=== PATIENT | male | born 1955 | race Caucasian/White ===

== ENCOUNTER 2016-05-09 10:39 | Emergency (ER) | END 2016-05-09 13:29 | disposition home or self-care (01) | DX: S99.921A Unspecified injury of right foot, initial encounter (principal); E11.9 Type 2 diabetes mellitus without complications; W22.8XXA Striking against or struck by other objects, initial encounter; Y92.9 Unspecified place or not applicable; Z79.4 Long term (current) use of insulin; Z79.01 Long term (current) use of anticoagulants; Z87.891 Personal history of nicotine dependence ==

== ENCOUNTER 2016-06-23 12:10 | Inpatient (IN) | payer MEDICARE, BC ==
[~2016-06-23] VITALS: Ht 167.6 cm; Wt 92.0 kg
[~2016-06-23 12:10] MED LIST: AMPH10CA PO; APIX5TAB PO; ATOR10TA65 PO; INSU100C5 SQ; INSU100I14 SC; LAS20 PO; LEVE-5 PO; MELA3TAB17 PO; METO-448 PO
[2016-06-23 14:30] VITALS: BP 139/64; RESP 18
[2016-06-23] MEDS ORDERED: LISI-525 PO (15:14)
[2016-06-23] MEDS ORDERED: TERA5CAP3 PO (15:14)
[2016-06-23] MEDS ORDERED: SENN-29 PO ×2 (15:14)
[2016-06-23 15:18] VITALS: Ht 167.6 cm; Wt 92.0 kg
[2016-06-23] MEDS ORDERED: VANCOMYCIN IV PER PHARMACY XX SCH (16:30)
[2016-06-23] MEDS ORDERED: NACL 0.9% 3 ML SYG IV SCH (16:30)
[2016-06-23] MEDS ORDERED: GLUCOSE GEL 15 GRAM TUBE BUCCAL PRN (17:30)
[2016-06-23] MEDS ORDERED: GLUCOSE GEL 15 GRAM TUBE PO PRN ×2 (17:30)
[2016-06-23] MEDS ORDERED: GLUCAGON 1 MG INJ IM PRN (17:30)
[2016-06-23] MEDS ORDERED: DEXTROSE 50% 50 ML SYRINGE IV PRN ×2 (17:30)
[2016-06-23] MEDS: INSULIN ASPART [NOVOLOG] 3 ML PEN SC SCH ×3 (17:45→21:05)
[2016-06-23 17:54] LABS: ADD SCAN DIFF NO
[2016-06-23 17:57] LABS: BASOPHILS % 0.3 % (0.0-2.0); EOSINOPHILS # 0.1 10^3/ul (0.0-0.5); EOSINOPHILS % 2.1 % (0.0-7.0); HEMATOCRIT 27.7 % (42.0-52.0); HEMOGLOBIN 9.3 g/dl (14.0-18.0); LYMPHOCYTES # 1.4 10^3/ul (0.8-2.9); LYMPHOCYTES % 20.4 % (15.0-51.0); MEAN CORPUSCULAR HEMOGLOBIN 29.3 pg (29.0-33.0); MEAN CORPUSCULAR HGB CONC 33.6 g/dl (32.0-37.0); MEAN CORPUSCULAR VOLUME 87.4 fl (82.0-101.0); MEAN PLATELET VOLUME 10.4 fl (7.4-10.4); MONOCYTE # 0.6 10^3/ul (0.3-0.9); MONOCYTES % 8.9 % (0.0-11.0); NEUTROPHIL # 4.6 10^3/ul (1.6-7.5); NEUTROPHILS % 67.9 % (39.0-77.0); PLATELET COUNT 181 10^3/UL (140-415); RED BLOOD COUNT 3.17 10^6/ul (4.70-6.10); RED CELL DISTRIBUTION WIDTH 13.9 % (11.5-14.5); WHITE BLOOD COUNT 6.8 10^3/ul (4.8-10.8)
[2016-06-23] MEDS: IMIPENEM-CILAST 500MG IV (PMX) 100 ML IVPB SCH (18:00)
[2016-06-23] MEDS: SOD CHLORIDE 0.45% 1,000 ML IV SCH (18:00)
[2016-06-23] MEDS ORDERED: VANCOMYCIN 1.75 GM in NS 500 ML IVPB ONE (18:00)
[2016-06-23 18:07] LABS: ALBUMIN 3.1 g/dl (3.3-4.9)
--- NOTE | 2016-06-23 18:07 | HP ---
DATE OF ADMISSION: 06/23/2016 HISTORY OF PRESENT ILLNESS: This is one of several [facility] admissions for this 60-year-old gentleman admitted with chief complaint of a gangrenous toe. The patient states that earlier during the week noticed this toe getting somewhat inflamed. Elvie pompa he was seen at the [facility] on June 21 and was given a prescription and an MRI was ordere d which showed osteomyelitis and the patient currently is being admitted for intravenous antibiotics and other appropriate measures. In terms of his past medical history, of note, he has had many epi sodes of foot ulcerations due to his diabetes. He has been under constant care of a technical communication teacher as w ell as been seen multiple times by infectious disease. His significant hospitalizations were for la paroscopic cholecystectomy, cataract in his left eye as well as a massive stroke which he suffered m any years ago, and has had vascular procedures on his right and left lower extremities. He has had issues for several years now with these particular issues. MEDICATIONS: In terms of his current regimen for diabetes, he is taking anywhere from 25 to 30 units of Lantus a t bedtime. He is also taking the following medications: 1. Eliquis 5 mg p.o. b.i.d. 2. Atorvastatin 10 mg at bedtime. 3. Lisinopril 20 mg b.i.d. 4. Metoprolol tartrate 25 mg b.i.d. 5. Terazosin 5 mg at bedtime. 6. Dextroamphetamine tablet 10 mg every 24 hours. 7. Keppra 1000 mg o. b.i.d. 8. Lasix 20 mg a day. 9. Stool softener and laxative. 10. Besides his insulin sliding scale, he is also taking Melatonin 3 mg a day. ALLERGIES: HE IS NOT ALLERGIC TO ANY MEDICATIONS. SOCIAL HISTORY: The patient is , has 3 children. He does not smoke or drink alcohol, nor he does drink any coffee and usually has no difficulty sleeping at night. FAMILY HISTORY: Both parents are . Father at age 74 of MA and heart failure. Mother age 68, had breast cancer. Siblings are alive and well. There is family history of diabetes, heart , cancer, hypertension, and stroke. REVIEW OF SYSTEMS: HEENT: Periodic headaches. CARDIORESPIRATORY: Denies any current chest pain or shortness of breath. GASTROINTESTINAL: No melena or hematemesis. GENITOURINARY: No urgency or frequency. MUSCULOSKELETAL: Positive for current right foot gangrene. NEUROPSYCHIATRIC: Unremarkable. GENERAL HEALTH: As above. PHYSICAL EXAMINATION: VITAL SIGNS: The patient's blood pressure was 139/64, pulse was 63 and regular, respirations were 1 8, temperature 98.1 and O2 sat 95% on room air. HEENT: Unremarkable. Eyes: Pupils were equal and reactive to light and accommodation. Fundi were poorly visualized. Tympanic membranes were unremarkable. Nose was negative. Mouth was unremarkab le. Fair oral hygiene was present. NECK: Supple without any rigidity. Trachea was midline. Thyroid was within normal limits. Neck v eins were flat. Carotid pulses were equal. BACK: Unremarkable. CHEST: Symmetrical. BREASTS AND AXILLARY: Did not reveal any masses. HEART: PMI is fifth intercostal space, midclavicular line. Regular sinus rhythm was noted. No sig nificant murmurs, rubs, or gallops being elicited. ABDOMEN: Soft, good bowel sounds were noted. No significant organomegaly, masses, or tenderness. Scar from prior surgery was noted. GENITALIA: Normal male external genitalia. RECTAL AND PROSTATIC: Done within less than 6 months ago revealed the prostate to be enlarged, othe rwise no rectal masses. EXTREMITIES: Did not reveal any clubbing, edema or cyanosis. There was a large ulcer on the right great toe gangrenous in part, with diminished dorsalis pedis and anterior tibial pulse on that side. Slight erythema. SKIN: Moist and warm without any eruptions other than the erythema around the gangrenous area. NEUROLOGIC EXAM: Other than weakness secondary to his old stroke was unremarkable. IMPRESSION: 1. Gangrenous foot ulcer right great toe distal phalanx with erythema and gangrene. 2. Diabetes mellitus type 1 with retinopathy, status post stroke as well as peripheral vascular dis ease. 3. Seizure disorder. 4. Hypertension. 5. Hyperlipidemia. 6. Degenerative joint disease. DISCUSSION: Plan is to admit patient. Intravenous antibiotics be begun with vancomycin and imipene m. His outpatient medications have been continued and we will try and obtain infectious disease con sultation when available. CONDITION ON ADMISSION: Stable. PROGNOSIS: Obviously dependent upon ultimate diagnosis. Dictated By: SHALONDA TYSON/DANILO Conf#: [id number] [facility]#: [id number]
[2016-06-23 18:08] LABS: POTASSIUM 4.1 mmol/L (3.5-5.1)
[2016-06-23 18:10] LABS: ALBUMIN/GLOBULIN RATIO 1.06; BILIRUBIN,INDIRECT 0.3 mg/dl (0-1.1); BILIRUBIN,TOTAL 0.3 mg/dl (0.2-1.3); CREATININE 1.13 mg/dl (0.61-1.24)
[2016-06-23 18:11] LABS: CALCIUM 8.7 mg/dl (8.4-10.2)
[2016-06-23 20:24] VITALS: BP 165/74; RESP 20
[2016-06-23] MEDS: LEVETIRACETAM 500 MG TAB PO SCH (20:55)
[2016-06-23] MEDS: APIXABAN 5 MG TABLET PO SCH (20:55)
[2016-06-23] MEDS: ATORVASTATIN 10 MG TAB PO SCH (20:56)
[2016-06-23] MEDS: LISINOPRIL 20 MG TAB PO SCH (20:57)
[2016-06-23] MEDS: TERAZOSIN 5 MG CAP PO SCH (20:57)
[2016-06-23] MEDS: METOPROLOL 25 MG TAB PO SCH (20:57)
[2016-06-23] MEDS ORDERED: SENNA/DOCUSATE NA (8.6MG/50MG) TAB PO SCH (21:00)
[2016-06-23] MEDS ORDERED: NON-FORMULARY/PATIENT OWN MED (Melatonin 3 MG) PO SCH (21:00)
[2016-06-23] MEDS: INSULIN GLARGINE [LANtus] 3 ML PEN SC SCH (21:02)
[2016-06-23] MEDS: DOCUSATE SODIUM 100 MG CAP PO SCH (21:30)
[2016-06-24] MEDS: IMIPENEM-CILAST 500MG IV (PMX) 100 ML IVPB SCH ×3 (00:01→12:12)
[2016-06-24 05:06] LABS: ADD SCAN DIFF NO
[2016-06-24 05:17] LABS: BASOPHILS % 0.3 % (0.0-2.0); EOSINOPHILS # 0.1 10^3/ul (0.0-0.5); EOSINOPHILS % 2.1 % (0.0-7.0); HEMATOCRIT 28.6 % (42.0-52.0); HEMOGLOBIN 9.6 g/dl (14.0-18.0); LYMPHOCYTES # 0.9 10^3/ul (0.8-2.9); LYMPHOCYTES % 14.6 % (15.0-51.0); MEAN CORPUSCULAR HEMOGLOBIN 29.2 pg (29.0-33.0); MEAN CORPUSCULAR HGB CONC 33.6 g/dl (32.0-37.0); MEAN CORPUSCULAR VOLUME 86.9 fl (82.0-101.0); MEAN PLATELET VOLUME 11.1 fl (7.4-10.4); MONOCYTE # 0.6 10^3/ul (0.3-0.9); MONOCYTES % 9.5 % (0.0-11.0); NEUTROPHIL # 4.5 10^3/ul (1.6-7.5); NEUTROPHILS % 72.9 % (39.0-77.0); PLATELET COUNT 172 10^3/UL (140-415); RED BLOOD COUNT 3.29 10^6/ul (4.70-6.10); WHITE BLOOD COUNT 6.2 10^3/ul (4.8-10.8)
[2016-06-24 05:51] LABS: POTASSIUM 4.5 mmol/L (3.5-5.1)
[2016-06-24 05:53] LABS: CREATININE 0.99 mg/dl (0.61-1.24)
[2016-06-24 05:54] LABS: CALCIUM 8.1 mg/dl (8.4-10.2)
[2016-06-24] MEDS: VANCOMYCIN 1 GM in NS 250 ML IVPB SCH ×2 (06:01→19:02)
[2016-06-24 07:28] VITALS: BP 200/82; RESP 18
[2016-06-24] MEDS: INSULIN ASPART [NOVOLOG] 3 ML PEN SC SCH ×7 (08:15→20:11)
[2016-06-24] MEDS: DOCUSATE SODIUM 100 MG CAP PO SCH ×2 (08:16→20:03)
[2016-06-24] MEDS: LEVETIRACETAM 500 MG TAB PO SCH ×2 (08:16→20:04)
[2016-06-24] MEDS: APIXABAN 5 MG TABLET PO SCH ×2 (08:17→20:04)
[2016-06-24] MEDS: METOPROLOL 25 MG TAB PO SCH ×2 (08:19→20:04)
[2016-06-24] MEDS: FUROSEMIDE 20 MG TAB PO SCH (08:19)
[2016-06-24] MEDS: LISINOPRIL 20 MG TAB PO SCH ×2 (08:19→20:04)
[2016-06-24 08:25] VITALS: BP 195/73; PULSE 60; RESP 18
[2016-06-24] MEDS ORDERED: AMPHET ASP AMPHET D AMPHET 10 MG PO SCH (09:00)
[2016-06-24] MEDS ORDERED: [UNRECOGNIZED DRUG - OTHER] PO SCH (09:00)
[2016-06-24] MEDS: SOD CHLORIDE 0.45% 1,000 ML IV SCH ×2 (10:10→23:45)
--- NOTE | 2016-06-24 11:35 | PN ---
Date/Time of Note Date/Time of Note DATE: 06/24/16 TIME: 11:29 Assessment/Plan VTE Prophylaxis VTE Prophylaxis Intervention: other (eliquis) Lines/Catheters IV Catheter Type (from Nrs): Peripheral IV Assessment/Plan Problems: (1) Type 1 diabetes mellitus with diabetic peripheral angiopathy with gangrene Status: Acute Comment: Cont. regimen of lantus/Novolog. Monitor glucose. Pt. awaiting meeting w/ vascular surgery in 48 hours. (2) Essential (primary) hypertension Status: Chronic Comment: BP elevated. Add amlodipine 5 mg and maxzide 37.5/25 and reeval tomorrow. (3) Hyperlipidemia Status: Chronic Comment: Cont. atorvastatin (4) Atrial fibrillation Status: Chronic Comment: Cont. eliquis (5) Seizure disorder as sequela of cerebrovascular accident Status: Chronic Comment: Cont. levitiracetam (6) Excessive daytime sleepiness Status: Chronic Comment: cont. amphetamine daily (7) Insomnia Status: Chronic Comment: cont. melatonin at night (8) Acute osteomyelitis of toe of right foot Status: Acute Comment: Cont. imipenem and vanco and defer to ID. Likely to be unnecessary following pending amputation. Subjective 24 Hr Interval Summary Constitutional: no complaints Respiratory: no complaints Cardiovascular: no complaints Gastrointestinal: no complaints Genitourinary: no complaints Musculoskeletal: no complaints Neurologic: no complaints Exam/Review of Systems Vital Signs Vitals VS - Last 72 Hours, by Label Date Time Temp Pulse Resp B/P Pulse Ox O2 Delivery O2 Flow Rate FiO2 06/24/16 08:25 60 18 195/73 Room Air 06/24/16 07:28 97.6 65 18 200/82 92 06/23/16 20:24 98.4 70 20 165/74 92 06/23/16 14:30 98.1 63 18 139/64 95 Vital Signs Date Time Temp Pulse Resp B/P Pulse Ox O2 Delivery O2 Flow Rate FiO2 06/24/16 08:25 60 18 195/73 Room Air 06/24/16 07:28 97.6 92 Intake and Output 06/23/16 06/23/16 06/24/16 15:00 23:00 07:00 Intake Total 500 ml 750 ml Balance 500 ml 750 ml Exam Constitutional: alert, obese, oriented Psych: depression (defiant, frustrated) Respiratory: clear to auscultation, normal air movement Cardiovascular: regular rate and rhythm, No edema, No murmurs/extra sounds, No rub Gastrointestinal: bowel sounds, nl liver, spleen, non-tender, soft, No mass, No rebound or guarding Musculoskeletal: No nl extremities to inspection (R great toe wrapped) Extremities: No clubbing, No cyanosis, No edema Neurological: RADIOGRAPHER CARDIAC CATHETERIZATION II-XII intact, nl mental status, nl speech, nl strength Additional Comments Bedside Glucose - 72 Hours Test 06/23/16 17:25 06/23/16 20:53 06/24/16 07:50 Bedside Glucose 77mg/dL (70-220) 204mg/dL (70-220) 181mg/dL (70-220) Results Result Diagram: 06/24/16 0451 06/24/16 0451 Results 24 hrs Laboratory Tests Test 06/23/16 17:25 06/23/16 17:45 06/23/16 20:53 06/24/16 04:51 Bedside Glucose 77 204 Alanine Aminotransferase (ALT/SGPT) 21 Albumin 3.1 L Albumin/Globulin Ratio 1.06 Alkaline Phosphatase 66 Anion Gap 13 12 Aspartate Amino Transf (AST/SGOT) 16 Basophils # 0.0 0.0 Basophils % 0.3 0.3 Blood Urea Nitrogen 26 H 21 H Calcium Level 8.7 8.1 L Carbon Dioxide Level 28 28 Chloride Level 106 105 Creatinine 1.13 0.99 Direct Bilirubin 0.00 Eosinophils # 0.1 0.1 Eosinophils % 2.1 2.1 Globulin 2.90 Glucose Level 72 150 Hematocrit 27.7 #L 28.6 L Hemoglobin 9.3 #L 9.6 L Hemoglobin A1c 6.3 H Indirect Bilirubin 0.3 Lymphocytes # 1.4 0.9 Lymphocytes % 20.4 14.6 L Mean Corpuscular Hemoglobin 29.3 29.2 Mean Corpuscular Hemoglobin Concent 33.6 33.6 Mean Corpuscular Volume 87.4 86.9 Mean Platelet Volume 10.4 11.1 H Monocytes # 0.6 0.6 Monocytes % 8.9 9.5 Neutrophils # 4.6 4.5 Neutrophils % 67.9 72.9 Nucleated Red Blood Cells # 0.0 0.0 Nucleated Red Blood Cells % 0.0 0.0 Platelet Count 181 172 Potassium Level 4.1 4.5 Red Blood Count 3.17 L 3.29 L Red Cell Distribution Width 13.9 14.0 Sodium Level 143 140 Total Bilirubin 0.3 Total Protein 6.0 L White Blood Count 6.8 # 6.2 Test 06/24/16 07:50 Bedside Glucose 181 Medications Medications Current Medications Insulin Glargine 25 unit 25 unit DAILY@20 SC Last administered on 06/23/16 21: 02; Admin Dose 25 UNIT; Start 06/23/16 at 20:00 Imipenem/ Cilastatin Sodium (Primaxin 500 Mg/ 100 ml (Pmx)) 100 ml @ 100 mls/ hr Q6 IVPB Last administered on 06/24/16 05:12; Admin Dose 100 MLS/HR; Start 06/23/16 at 18:00 Atorvastatin Calcium (Lipitor) 10 mg HS PO Last administered on 06/23/16 20:56 ; Admin Dose 10 MG; Start 06/23/16 at 21:00 Furosemide (Lasix) 20 mg DAILY PO Last administered on 06/24/16 08:19; Admin Dose 20 MG; Start 06/24/16 at 09:00 Levetiracetam (Keppra) 1,000 mg BID PO Last administered on 06/24/16 08:16; Admin Dose 1,000 MG; Start 06/23/16 at 21:00 Lisinopril (Zestril) 20 mg BID PO Last administered on 06/24/16 08:19; Admin Dose 20 MG; Start 06/23/16 at 21:00 Metoprolol Tartrate (Lopressor) 25 mg BID PO Last administered on 06/24/16 08: 19; Admin Dose 25 MG; Start 06/23/16 at 21:00 Terazosin HCl (Hytrin) 5 mg HS PO Last administered on 06/23/16 20:57; Admin Dose 5 MG; Start 06/23/16 at 21:00 Miscellaneous Information 10 mg DAILY PO ; Start 06/24/16 at 09:00; Status UNV Apixaban (Eliquis) 5 mg BID PO Last administered on 06/24/16 08:17; Admin Dose 5 MG; Start 06/23/16 at 21:00 Miscellaneous Information 1 ea NOTE XX ; Start 06/23/16 at 17:30 Glucose (Glutose) 15 gm Q15M PRN PO DECREASED GLUCOSE; Start 06/23/16 at 17:30 Glucose (Glutose) 22.5 gm Q15M PRN PO DECREASED GLUCOSE; Start 06/23/16 at 17: 30 Dextrose (D50w Syringe) 25 ml Q15M PRN IV DECREASED GLUCOSE; Start 06/23/16 at 17:30 Dextrose (D50w Syringe) 50 ml Q15M PRN IV DECREASED GLUCOSE; Start 06/23/16 at 17:30 Glucagon (Glucagen) 1 mg Q15M PRN IM DECREASED GLUCOSE; Start 06/23/16 at 17:30 Glucose 15 gm 15 gm Q15M PRN BUCCAL DECREASED GLUCOSE; Start 06/23/16 at 17:30 Sodium Chloride (1/2 NS) 1,000 ml @ 60 mls/hr [id number] IV Last administered on 06/23/16 18:00; Admin Dose 60 MLS/HR; Start 06/23/16 at 17:30 Miscellaneous Information MEDICATION REQUIRES CLARIFICATI... Q8H XX ; Start 06/23/16 at 17:30 Vancomycin HCl (Vancocin) 250 ml @ 125 mls/hr Q12H IVPB Last administered on 06:01; Admin Dose 125 MLS/HR; Start 06/24/16 at 06:00 Docusate Sodium (Colace) 100 mg BID PO Last administered on 06/24/16 08:16; Admin Dose 100 MG; Start 06/23/16 at 21:30 Miscellaneous Information (*Rx Drug Level Order Reminder*) VANCOMYCIN TROUGH AT 0500 ONCE ONCE XX ; Start 06/25/16 at 05:00; Stop 06/25/16 at 05:01 Amlodipine Besylate (Norvasc) 5 mg DAILY PO ; Start 06/24/16 at 11:30 Triamterene/HCTZ (Dyazide) 1 cap DAILY@06 PO ; Start 06/24/16 at 11:30 DORIS HANSON MD Jun 24, 2016 11:35
[2016-06-24] MEDS: AMLODIPINE 5 MG TAB PO SCH (12:13)
[2016-06-24 13:59] VITALS: BP 162/71; PULSE 56
[2016-06-24] MEDS: TRIAMTERENE/HCTZ (37.5-25) CAP PO SCH (13:59)
--- NOTE | 2016-06-24 17:16 | CONS ---
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, may need toe amputation==> defer to podiatry DW pt/family at bedside JACKIE Russo Thank you Problems: Consultation Date/Type/Reason Admit Date/Time Jun 23, 2016 at 14:15 Type of Consultation: ID Referring Provider: DORIS HANSON MD Constitutional: no complaints Respiratory: no complaints Cardiovascular: no complaints Gastrointestinal: no complaints Genitourinary: no complaints Musculoskeletal: no complaints Neurologic: no complaints Psychological: depression (defiant, frustrated) Social History Smoking Status: Never smoker Exam/Review of Systems Vital Signs Vitals Vital Signs Date Time Temp Pulse Resp B/P Pulse Ox O2 Delivery O2 Flow Rate FiO2 06/24/16 13:59 56 162/71 06/24/16 08:25 18 Room Air 06/24/16 07:28 97.6 92 Intake and Output 06/23/16 06/23/16 06/24/16 15:00 23:00 07:00 Intake Total 500 ml 750 ml Balance 500 ml 750 ml Results Result Diagram: 06/24/16 0451 06/24/16 0451 Results 24 hrs Laboratory Tests Test 06/23/16 17:25 06/23/16 17:45 06/23/16 20:53 06/24/16 04:51 Bedside Glucose 77 204 Alanine Aminotransferase (ALT/SGPT) 21 Albumin 3.1 L Albumin/Globulin Ratio 1.06 Alkaline Phosphatase 66 Anion Gap 13 12 Aspartate Amino Transf (AST/SGOT) 16 Basophils # 0.0 0.0 Basophils % 0.3 0.3 Blood Urea Nitrogen 26 H 21 H Calcium Level 8.7 8.1 L Carbon Dioxide Level 28 28 Chloride Level 106 105 Creatinine 1.13 0.99 Direct Bilirubin 0.00 Eosinophils # 0.1 0.1 Eosinophils % 2.1 2.1 Globulin 2.90 Glucose Level 72 150 Hematocrit 27.7 #L 28.6 L Hemoglobin 9.3 #L 9.6 L Hemoglobin A1c 6.3 H Indirect Bilirubin 0.3 Lymphocytes # 1.4 0.9 Lymphocytes % 20.4 14.6 L Mean Corpuscular Hemoglobin 29.3 29.2 Mean Corpuscular Hemoglobin Concent 33.6 33.6 Mean Corpuscular Volume 87.4 86.9 Mean Platelet Volume 10.4 11.1 H Monocytes # 0.6 0.6 Monocytes % 8.9 9.5 Neutrophils # 4.6 4.5 Neutrophils % 67.9 72.9 Nucleated Red Blood Cells # 0.0 0.0 Nucleated Red Blood Cells % 0.0 0.0 Platelet Count 181 172 Potassium Level 4.1 4.5 Red Blood Count 3.17 L 3.29 L Red Cell Distribution Width 13.9 14.0 Sodium Level 143 140 Total Bilirubin 0.3 Total Protein 6.0 L White Blood Count 6.8 # 6.2 Test 06/24/16 07:50 06/24/16 12:11 Bedside Glucose 181 145 Medications Medications Current Medications Insulin Glargine 25 unit 25 unit DAILY@20 SC Last administered on 06/23/16 21: 02; Admin Dose 25 UNIT; Start 06/23/16 at 20:00 Imipenem/ Cilastatin Sodium (Primaxin 500 Mg/ 100 ml (Pmx)) 100 ml @ 100 mls/ hr Q6 IVPB Last administered on 06/24/16 12:12; Admin Dose 100 MLS/HR; Start 06/23/16 at 18:00 Atorvastatin Calcium (Lipitor) 10 mg HS PO Last administered on 06/23/16 20:56 ; Admin Dose 10 MG; Start 06/23/16 at 21:00 Furosemide (Lasix) 20 mg DAILY PO Last administered on 06/24/16 08:19; Admin Dose 20 MG; Start 06/24/16 at 09:00 Levetiracetam (Keppra) 1,000 mg BID PO Last administered on 06/24/16 08:16; Admin Dose 1,000 MG; Start 06/23/16 at 21:00 Lisinopril (Zestril) 20 mg BID PO Last administered on 06/24/16 08:19; Admin Dose 20 MG; Start 06/23/16 at 21:00 Metoprolol Tartrate (Lopressor) 25 mg BID PO Last administered on 06/24/16 08: 19; Admin Dose 25 MG; Start 06/23/16 at 21:00 Terazosin HCl (Hytrin) 5 mg HS PO Last administered on 06/23/16 20:57; Admin Dose 5 MG; Start 06/23/16 at 21:00 Miscellaneous Information 10 mg DAILY PO ; Start 06/24/16 at 09:00; Status UNV Apixaban (Eliquis) 5 mg BID PO Last administered on 06/24/16 08:17; Admin Dose 5 MG; Start 06/23/16 at 21:00 Miscellaneous Information 1 ea NOTE XX ; Start 06/23/16 at 17:30 Glucose (Glutose) 15 gm Q15M PRN PO DECREASED GLUCOSE; Start 06/23/16 at 17:30 Glucose (Glutose) 22.5 gm Q15M PRN PO DECREASED GLUCOSE; Start 06/23/16 at 17: 30 Dextrose (D50w Syringe) 25 ml Q15M PRN IV DECREASED GLUCOSE; Start 06/23/16 at 17:30 Dextrose (D50w Syringe) 50 ml Q15M PRN IV DECREASED GLUCOSE; Start 06/23/16 at 17:30 Glucagon (Glucagen) 1 mg Q15M PRN IM DECREASED GLUCOSE; Start 06/23/16 at 17:30 Glucose 15 gm 15 gm Q15M PRN BUCCAL DECREASED GLUCOSE; Start 06/23/16 at 17:30 Sodium Chloride (1/2 NS) 1,000 ml @ 60 mls/hr [id number] IV Last administered on 06/23/16 18:00; Admin Dose 60 MLS/HR; Start 06/23/16 at 17:30 Miscellaneous Information MEDICATION REQUIRES CLARIFICATI... Q8H XX ; Start 06/23/16 at 17:30 Vancomycin HCl (Vancocin) 250 ml @ 125 mls/hr Q12H IVPB Last administered on 06:01; Admin Dose 125 MLS/HR; Start 06/24/16 at 06:00 Docusate Sodium (Colace) 100 mg BID PO Last administered on 06/24/16 08:16; Admin Dose 100 MG; Start 06/23/16 at 21:30 Miscellaneous Information (*Rx Drug Level Order Reminder*) VANCOMYCIN TROUGH AT 0500 ONCE ONCE XX ; Start 06/25/16 at 05:00; Stop 06/25/16 at 05:01 Amlodipine Besylate (Norvasc) 5 mg DAILY PO Last administered on 06/24/16 12: 13; Admin Dose 5 MG; Start 06/24/16 at 11:30 Triamterene/HCTZ (Dyazide) 1 cap DAILY@06 PO Last administered on 06/24/16 13: 59; Admin Dose 1 CAP; Start 06/24/16 at 11:30 IGOR HERNANDEZ NP Jun 24, 2016 17:15
[2016-06-24] MEDS: CEFTRIAXONE 1 GM/50 ML (PMX) 50 ML IVPB SCH (17:45)
[2016-06-24 20:00] VITALS: BP 186/63; PULSE 63; RESP 18
[2016-06-24] MEDS: TERAZOSIN 5 MG CAP PO SCH (20:03)
[2016-06-24] MEDS: ATORVASTATIN 10 MG TAB PO SCH (20:04)
[2016-06-24] MEDS: INSULIN GLARGINE [LANtus] 3 ML PEN SC SCH (20:21)
[2016-06-24 21:30] VITALS: BP 140/67; PULSE 57
[2016-06-25] MEDS: SOD CHLORIDE 0.45% 1,000 ML IV SCH ×3 (02:45→23:49)
[2016-06-25 06:10] LABS: CREATININE 1.03 mg/dl (0.61-1.24)
[2016-06-25] MEDS: VANCOMYCIN 1 GM in NS 250 ML IVPB SCH (06:37)
[2016-06-25] MEDS: TRIAMTERENE/HCTZ (37.5-25) CAP PO SCH (06:37)
[2016-06-25 06:44] VITALS: BP 149/57; PULSE 66
[2016-06-25 07:36] VITALS: BP 158/69; RESP 20
[2016-06-25] MEDS: METOPROLOL 25 MG TAB PO SCH ×2 (08:58→20:26)
[2016-06-25] MEDS: AMLODIPINE 5 MG TAB PO SCH (08:58)
[2016-06-25] MEDS: FUROSEMIDE 20 MG TAB PO SCH (08:59)
[2016-06-25] MEDS: APIXABAN 5 MG TABLET PO SCH ×2 (08:59→20:25)
[2016-06-25] MEDS: LEVETIRACETAM 500 MG TAB PO SCH ×2 (08:59→20:25)
[2016-06-25] MEDS: LISINOPRIL 20 MG TAB PO SCH ×2 (08:59→20:26)
[2016-06-25] MEDS: DOCUSATE SODIUM 100 MG CAP PO SCH ×2 (08:59→20:24)
[2016-06-25] MEDS: INSULIN ASPART [NOVOLOG] 3 ML PEN SC SCH ×7 (09:12→20:26)
--- NOTE | 2016-06-25 16:47 | PN ---
DATE: 06/25/2016 SUBJECTIVE: The patient comfortably watching television, no major complaints. Toe is exposed. Sug ars are controlled. PHYSICAL EXAMINATION: VITAL SIGNS: Revealed the following: The patient's blood pressure 158/69, pulse 60 and regular, re spirations 20, temperature 98.3, O2 saturation 94% on room air. HEENT: Unremarkable. LUNGS: Clear. HEART: Reveals a regular rhythm. ABDOMEN: Unremarkable. EXTREMITIES: Right great toe and distal phalanx gangrenous. IMPRESSION: 1. Osteomyelitis, right toe. 2. Diabetes mellitus type 1 in relatively good control with retinopathy and peripheral vascular dis ease. 3. Hypertension. 4. Hyperlipidemia. PLAN: To continue intravenous antibiotics. Question of potential amputation of right great toe disc ussed with patient. Other than that, intravenous antibiotics will continue. Condition at this point is stable. Adjustments in insulin doses are being made. Dictated By: SHALONDA TYSON/DANILO Conf#: [id number] DID#: [id number]
[2016-06-25] MEDS: CEFTRIAXONE 1 GM/50 ML (PMX) 50 ML IVPB SCH (17:18)
[2016-06-25] MEDS: VANCOMYCIN 1.25 GM in SOD CHLORIDE 0.9% 250 ML IVPB SCH (18:04)
--- NOTE | 2016-06-25 18:06 | PN ---
DATE: 06/25/2016 SUBJECTIVE: No acute changes. The patient is alert, feels good, looks comfortable, no fevers. LABORATORIES: BUN 19, creatinine 1.0. ANTIMICROBIALS: Patient is on: 1. Vancomycin. 2. Rocephin. PHYSICAL EXAMINATION: GENERAL: This is a well-developed, well-nourished elderly man who is alert, in no distress. HEENT: Head atraumatic, normocephalic. Sclerae anicteric. Buccal mucosa pink. NECK: Supple. CHEST: Rise symmetrical. Breath sounds clear. HEART: S1, S2. ABDOMEN: Soft. Bowel tones present. EXTREMITIES: No cyanosis. Right great toe dressing intact. ASSESSMENT: 1. Right great toe cellulitis with osteomyelitis. 2. Diabetes. 3. Diabetic neuropathy. 4. Hypertension. PLAN: The patient remains stable on appropriate antimicrobials, wound culture pending podiatry eval uation pending. The patient will require long-term IV antibiotics versus toe amputation. We will d efer to Podiatry. Dictated By: IGOR HERNANDEZ HEEL VARNISHER for ROMINA LAINEZ/DANILO Conf#: [id number] DID#: [id number]
--- NOTE | 2016-06-25 18:28 | CONS ---
DATE OF ADMISSION: 06/23/2016 DATE OF CONSULTATION: REQUESTING PHYSICIAN: Shalonda Casarez MD. HISTORY OF PRESENT ILLNESS: The patient is a 60-year-old white male who was admitted with a chief complaint of a red, swollen right great toe. The patient has a history of diabetes mellitus with peripheral neuropathy and peripheral vascular disease. He has had osteomyelitis previously in the left fifth metatarsal, which has been treated. The patient also has been complicated by having a cerebrovascular accident associated with atrial fibrillation, presumably. An x-ray was taken of t he right foot, which we did not reveal any bony involvement of the right great toe. The patient was begun treatment with vancomycin and imipenem. PAST MEDICAL HISTORY: Diabetes mellitus, peripheral neuropathy, peripheral vascular disease with ak shira vascular surgery and bypass, cerebrovascular accident with residual CVA. History of glaucoma an d cataracts. He has a diagnosis of excessive daytime sleepiness, which he takes Adderall, and also he states he has had an obstructive sleep apnea study, but does not know what the results are. The patient is overweight with 5 feet 6 inches, 92 kg, and has a 17 inch neck collar size. PAST SURGICAL HISTORY: Have consisted of peripheral vascular surgery including bypass graft, from o ne iliac or femoral artery to the other. He has had laparoscopic cholecystectomy. MEDICATIONS: Include: 1. Lantus insulin 25 to 30 units daily. 2. Norvasc 5 mg daily. 3. Dyazide 1 capsule daily. 4. Furosemide 20 mg daily. 5. Docusate sodium 100 mg daily. 6. Atorvastatin 10 mg daily. 7. Levetiracetam 1000 mg twice a day; that is Keppra. 8. Lisinopril 20 mg twice a day. 9. Metoprolol tartrate 25 mg twice a day. 10. Terazosin 5 mg at bedtime. 11. Apixaban 5 mg b.i.d. REVIEW OF SYSTEMS: HEENT: History of glaucoma and cataracts. CARDIORESPIRATORY: Hypertension. No cough, sputum, or shortness of breath. Denies smoking. The p atient had a history of atrial fibrillation for which he is anticoagulated. There is no mention in his record that that may be associated with his having a cerebrovascular accident. GASTROINTESTINAL: No nausea, vomiting, diarrhea. GENITOURINARY: History of benign prostatic hypertrophy, symptomatic. NEUROLOGIC: History of cerebrovascular accident with residual and resulting seizure disorder. ENDOCRINOLOGIC: Diabetes mellitus. No history of thyroid disease. FAMILY HISTORY: Two members of his family have diabetes. Only 1 parent has diabetes and he and 1 o ther sibling have diabetes. PHYSICAL EXAMINATION GENERAL: Reveals a well-developed, flushed, plethoric white male lying in bed. He is in no acute d istress. VITAL SIGNS: His blood pressure is 158/69, pulse is 60. His respirations are normal. His O2 satur ations are 94% on room air. NECK: Supple. No jugular venous distention. CHEST: Clear to percussion and auscultation. HEART: Regular and slow. There are no extra beats. ABDOMEN: Soft. No palpable organs or masses. EXTREMITIES: Reveal amputation of the left 4th toe. Examination of the right leg reveals swelling and redness of the right great toe down to the MP joint and the first quarter of the first metatarsa l area. There is a necrotic area ulcer and subungual hemorrhage of the nail and the ulceration is o n the lateral distal aspect of the right great toe. INITIAL IMPRESSION: 1. Cellulitis and superficial gangrene of right great toe. 2. Peripheral vascular disease. 3. Diabetes mellitus with peripheral neuropathy. 4. History of cerebrovascular accident with associated seizure disorder. 5. Atrial fibrillation on apixaban anticoagulation. 6. Daytime sleepiness complaint. Rule out obstructive sleep apnea. 7. Hypertension. RECOMMENDATIONS: I would get an MRI of the patient's right foot and substitute ceftriaxone for imip enem, continuing with vancomycin. Thank you, Dr. Espinosa, for referring this interesting patient. Dictated By: Javid ORTIZ MD for ROMINA PABLO MD EC/NTS Conf#: [id number] DID#: [id number] CC: SHALONDA ESPINOSA MD;*EndCC*
[2016-06-25 19:54] VITALS: BP 189/78; RESP 20
[2016-06-25] MEDS: TERAZOSIN 5 MG CAP PO SCH (20:25)
[2016-06-25] MEDS: ATORVASTATIN 10 MG TAB PO SCH (20:25)
[2016-06-25] MEDS: INSULIN GLARGINE [LANtus] 3 ML PEN SC SCH (20:32)
[2016-06-25 22:00] VITALS: BP 145/66; PULSE 73
[2016-06-26] MEDS: VANCOMYCIN 1.25 GM in SOD CHLORIDE 0.9% 250 ML IVPB SCH ×2 (05:50→17:44)
[2016-06-26] MEDS: TRIAMTERENE/HCTZ (37.5-25) CAP PO SCH (05:51)
[2016-06-26 05:53] LABS: ADD SCAN DIFF NO
[2016-06-26 05:56] LABS: BASOPHILS % 0.4 % (0.0-2.0); EOSINOPHILS # 0.2 10^3/ul (0.0-0.5); EOSINOPHILS % 3.1 % (0.0-7.0); HEMATOCRIT 27.5 % (42.0-52.0); HEMOGLOBIN 9.4 g/dl (14.0-18.0); MEAN CORPUSCULAR HEMOGLOBIN 29.4 pg (29.0-33.0); MEAN CORPUSCULAR HGB CONC 34.2 g/dl (32.0-37.0); MEAN CORPUSCULAR VOLUME 85.9 fl (82.0-101.0); MONOCYTE # 0.7 10^3/ul (0.3-0.9); MONOCYTES % 9.6 % (0.0-11.0); NEUTROPHIL # 5.1 10^3/ul (1.6-7.5); NEUTROPHILS % 72.5 % (39.0-77.0); PLATELET COUNT 199 10^3/UL (140-415); RED CELL DISTRIBUTION WIDTH 13.8 % (11.5-14.5); WHITE BLOOD COUNT 7.1 10^3/ul (4.8-10.8)
[2016-06-26 06:09] LABS: ALBUMIN 2.9 g/dl (3.3-4.9)
[2016-06-26 06:10] LABS: POTASSIUM 4.3 mmol/L (3.5-5.1)
[2016-06-26 06:12] LABS: BILIRUBIN,INDIRECT 0.4 mg/dl (0-1.1); BILIRUBIN,TOTAL 0.4 mg/dl (0.2-1.3); CREATININE 1.01 mg/dl (0.61-1.24); TOTAL PROTEIN 5.8 g/dl (6.1-8.1)
[2016-06-26 06:13] LABS: CALCIUM 8.3 mg/dl (8.4-10.2)
[2016-06-26 08:18] VITALS: BP 135/61; RESP 18
[2016-06-26 08:21] VITALS: BP 135/61; RESP 18
[2016-06-26] MEDS: DOCUSATE SODIUM 100 MG CAP PO SCH ×2 (09:40→20:41)
[2016-06-26] MEDS: LEVETIRACETAM 500 MG TAB PO SCH ×2 (09:40→20:41)
[2016-06-26] MEDS: APIXABAN 5 MG TABLET PO SCH ×2 (09:40→20:41)
[2016-06-26] MEDS: AMLODIPINE 5 MG TAB PO SCH (09:40)
[2016-06-26] MEDS: LISINOPRIL 20 MG TAB PO SCH ×2 (09:40→20:41)
[2016-06-26] MEDS: FUROSEMIDE 20 MG TAB PO SCH (09:41)
[2016-06-26] MEDS: METOPROLOL 25 MG TAB PO SCH ×2 (09:41→20:44)
[2016-06-26] MEDS: INSULIN ASPART [NOVOLOG] 3 ML PEN SC SCH ×7 (09:43→20:40)
[2016-06-26] MEDS ORDERED: LEVOFLOXACIN 500 MG TAB PO ONE (12:00)
[2016-06-26] MEDS: SOD CHLORIDE 0.45% 1,000 ML IV SCH (12:10)
--- NOTE | 2016-06-26 13:42 | CONS ---
Date/Time of Note Date/Time of Note DATE: 06/26/16 TIME: 13:40 Assessment/Plan Assessment/Plan Chief Complaint/Hosp Course SUBJECTIVE: No acute changes. The patient is sleeping, looks comfortable, no fevers. ANTIMICROBIALS: 1. Vancomycin. 2. Rocephin. PHYSICAL EXAMINATION: GENERAL: This is a well-developed, well-nourished elderly man who is alert, in no distress. HEENT: Head atraumatic, normocephalic. Sclerae anicteric. Buccal mucosa pink. NECK: Supple. CHEST: Rise symmetrical. Breath sounds clear. HEART: S1, S2. ABDOMEN: Soft. Bowel tones present. EXTREMITIES: No cyanosis. Right great toe dressing intact. ASSESSMENT: 1. Right great toe cellulitis with osteomyelitis==> cx + Stenotrophomonas. 2. Diabetes. 3. Diabetic neuropathy. 4. Hypertension. PLAN: The patient remains stable, will change Rocephin to Levaquin, await for podiatry evaluation. DW staff Problems: Consultation Date/Type/Reason Admit Date/Time Jun 23, 2016 at 14:15 Initial Consult Date Type of Consultation: ID Referring Provider: DORIS HANSON MD Exam/Review of Systems Vital Signs Vitals Vital Signs Date Time Temp Pulse Resp B/P Pulse Ox O2 Delivery O2 Flow Rate FiO2 06/26/16 08:21 98.5 60 18 135/61 93 06/24/16 20:00 Room Air Intake and Output 06/25/16 06/25/16 06/26/16 15:00 23:00 07:00 Intake Total 250 ml 2140 ml 1620 ml Output Total 600 ml 400 ml Balance 250 ml 1540 ml 1220 ml Results Result Diagram: 06/26/16 0508 06/26/16 0508 Results 24 hrs Laboratory Tests Test 06/25/16 16:49 06/25/16 17:20 06/25/16 20:23 06/26/16 05:08 Bedside Glucose 115 91 Uric Acid 6.8 Alanine Aminotransferase (ALT/SGPT) 20 Albumin 2.9 L Albumin/Globulin Ratio 1.00 Alkaline Phosphatase 70 Anion Gap 14 Aspartate Amino Transf (AST/SGOT) 12 L Basophils # 0.0 Basophils % 0.4 Blood Urea Nitrogen 21 H Calcium Level 8.3 L Carbon Dioxide Level 26 Chloride Level 103 Creatinine 1.01 Direct Bilirubin 0.00 Eosinophils # 0.2 Eosinophils % 3.1 Globulin 2.90 Glucose Level 169 Hematocrit 27.5 L Hemoglobin 9.4 L Indirect Bilirubin 0.4 Lymphocytes # 1.0 Lymphocytes % 14.0 L Mean Corpuscular Hemoglobin 29.4 Mean Corpuscular Hemoglobin Concent 34.2 Mean Corpuscular Volume 85.9 Mean Platelet Volume 11.0 H Monocytes # 0.7 Monocytes % 9.6 Neutrophils # 5.1 Neutrophils % 72.5 Nucleated Red Blood Cells # 0.0 Nucleated Red Blood Cells % 0.0 Platelet Count 199 Potassium Level 4.3 Red Blood Count 3.20 L Red Cell Distribution Width 13.8 Sodium Level 139 Total Bilirubin 0.4 Total Protein 5.8 L White Blood Count 7.1 Test 06/26/16 08:18 06/26/16 12:23 Bedside Glucose 222 H 286 H Medications Medications Current Medications Insulin Glargine (Lantus) 25 unit DAILY@20 SC Last administered on 06/25/16 20 :32; Admin Dose 25 UNIT; Start 06/23/16 at 20:00 Atorvastatin Calcium (Lipitor) 10 mg HS PO Last administered on 06/25/16 20:25 ; Admin Dose 10 MG; Start 06/23/16 at 21:00 Furosemide (Lasix) 20 mg DAILY PO Last administered on 06/26/16 09:41; Admin Dose 20 MG; Start 06/24/16 at 09:00 Levetiracetam (Keppra) 1,000 mg BID PO Last administered on 06/26/16 09:40; Admin Dose 1,000 MG; Start 06/23/16 at 21:00 Lisinopril (Zestril) 20 mg BID PO Last administered on 06/26/16 09:40; Admin Dose 20 MG; Start 06/23/16 at 21:00 Metoprolol Tartrate (Lopressor) 25 mg BID PO Last administered on 06/26/16 09: 41; Admin Dose 25 MG; Start 06/23/16 at 21:00 Terazosin HCl (Hytrin) 5 mg HS PO Last administered on 06/25/16 20:25; Admin Dose 5 MG; Start 06/23/16 at 21:00 Miscellaneous Information 10 mg DAILY PO ; Start 06/24/16 at 09:00; Status UNV Apixaban (Eliquis) 5 mg BID PO Last administered on 06/26/16 09:40; Admin Dose 5 MG; Start 06/23/16 at 21:00 Miscellaneous Information 1 ea NOTE XX ; Start 06/23/16 at 17:30 Glucose (Glutose) 15 gm Q15M PRN PO DECREASED GLUCOSE; Start 06/23/16 at 17:30 Glucose (Glutose) 22.5 gm Q15M PRN PO DECREASED GLUCOSE; Start 06/23/16 at 17: 30 Dextrose (D50w Syringe) 25 ml Q15M PRN IV DECREASED GLUCOSE; Start 06/23/16 at 17:30 Dextrose (D50w Syringe) 50 ml Q15M PRN IV DECREASED GLUCOSE; Start 06/23/16 at 17:30 Glucagon (Glucagen) 1 mg Q15M PRN IM DECREASED GLUCOSE; Start 06/23/16 at 17:30 Glucose 15 gm 15 gm Q15M PRN BUCCAL DECREASED GLUCOSE; Start 06/23/16 at 17:30 Sodium Chloride (1/2 NS) 1,000 ml @ 60 mls/hr [id number] IV Last administered on 06/25/16 23:49; Admin Dose 60 MLS/HR; Start 06/23/16 at 17:30 Miscellaneous Information (*Order Clarification Bulletin) MEDICATION REQUIRES CLARIFICATI... Q8H XX ; Start 06/23/16 at 17:30 Docusate Sodium (Colace) 100 mg BID PO Last administered on 06/26/16 09:40; Admin Dose 100 MG; Start 06/23/16 at 21:30 Amlodipine Besylate (Norvasc) 5 mg DAILY PO Last administered on 06/26/16 09: 40; Admin Dose 5 MG; Start 06/24/16 at 11:30 Triamterene/HCTZ 1 cap 1 cap DAILY@06 PO Last administered on 06/26/16 05:51; Admin Dose 1 CAP; Start 06/24/16 at 11:30 Vancomycin HCl/ Sodium Chloride (Vancocin/NS) 250 ml @ 83.333 mls/ hr Q12H IVPB Last administered on 06/26/16 05:50; Admin Dose 83.333 MLS/HR; Start at 18:00 Levofloxacin (Levaquin) 500 mg DAILY@06 PO ; Start 06/27/16 at 06:00 Miscellaneous Information (*Rx Drug Level Order Reminder*) VANCOMYCIN TROUGH AT 0500 ONCE ONCE XX ; Start 06/27/16 at 05:00; Stop 06/27/16 at 05:01 IGOR HERNANDEZ NP Jun 26, 2016 13:42
--- NOTE | 2016-06-26 13:43 | RADRPT ---
PROCEDURE: MRI OF THE RIGHT FOOT. CLINICAL INDICATION: Right foot osteomyelitis, , hallux TECHNIQUE: Multiple MRI images of the right foot were obtained in multiple planes utilizing multip le pulse sequences. Images were interpreted on the high-resolution PACS system. COMPARISON: None. FINDINGS: 1st ray: There is diffuse bone marrow edema within the first distal phalanx with abnormal dark T1 si gnal on axial images 05-08 suggestive of osteomyelitis. There is also a skin ulcer with mild irregu larity of the skin and attenuation of the skin adjacent to the ulnar aspect of the first distal phal anx on coronal images 31 - 32. There is also bone marrow edema within the distal aspect of the first proximal phalanx with slight abnormal T1 signal. There is mild cortical irregularity along the dis aleksandr ulnar aspect of the first proximal phalanx. There is mild osseous spurring within the first int erphalangeal joint. There is no drainable abscess. There is partial thickness chondral loss within the first metatarsophalangeal joint with osseous spu rring and a small subchondral cyst within the first metatarsal head. The collateral ligaments are i ntact with mild thickening and scarring. Slight hallux valgus deformity is present. There is no si gnificant bone marrow edema across the first metatarsophalangeal joint. There is also osseous spurr ing within the sesamoids with partial thickness chondral loss at the sesamoid articulation with the first metatarsal head. 2nd through 5th ray: There is no acute fracture or bone marrow edema. The metatarsophalangeal joint s are intact. The collateral ligaments are intact. The chondral surfaces are preserved. There is no significant joint effusion. MIDFOOT: The tarsometatarsal joints are intact. The Lisfranc's ligament is intact. Other findings: There is no discrete Escalante's neuroma. No plantar fibroma is visualized. The flexor and extensor tendons around the foot are unremarkable. There is fatty atrophy with dener vation changes of the muscles around the foot. RPTAT: ZZ IMPRESSION: 1. Osteomyelitis within the first distal phalanx and distal aspect of the first proximal phalanx ac ross the interphalangeal joint with an adjacent skin ulcer along the ulnar aspect of the first toe. 2. Mild to moderate osteoarthrosis of the first metatarsophalangeal joint with partial thickness ch ondral loss, osseous spurring, small subchondral cysts. Slight hallux valgus deformity. .Migdalia Mcadams MD, Date Time Electronically viewed and signed by .Migdalia Mcadams MD, MD on 06/26/2016 13:43 .T/
--- NOTE | 2016-06-26 16:56 | CONS ---
DATE OF ADMISSION: 06/23/2016 DATE OF CONSULTATION: 06/26/2016 REFERRING PHYSICIAN: Dr. Shalonda Espinosa REASON FOR CONSULTATION: Right first toe gangrene. HISTORY OF PRESENT ILLNESS: This is a 60-year-old emt intermediate diabetic gentleman who is well known to me. He has developed an ulcer on his right first toe, probably about 6 weeks ago I did an angiogra m on him 2 weeks ago and he had very distal disease. I did an angioplasty of the dorsalis pedis all the way down at the ankle and into the foot. IT became quite well, but then he developed subsequent ly an infection in the toe. I saw him last Sunday at the [facility] and on the toe, the skin was all ma cerated on both sides of the toe and I had told him to stop using the Silvadene and to start putting Betadine to try and dry it up. I guess it got worse. I saw him on Sunday, on Sunday I guess it h ad gotten worse so he saw Dr. Espinosa in the office and he sent him in to the hospital for IV an tibiotics. In the interim, I was told he had an MRI of the right foot that had been ordered by Dr. Sven valdivia and that it was positive for osteomyelitis in the right first toe. Since last time it looks m uch better. They stopped the Silvadene. The areas of ulceration on the toe have become dry eschar and as there is no further propagation more proximally. There is no drainage, no odor. It actually looks much better than it did when I saw him last Sunday. He has been getting IV vancomycin sinc e he was admitted. PAST MEDICAL HISTORY: Significant for diabetes for many years, hypertension. He has a seizure disor bozena. He had a stroke many years ago. He has had ischemia in the left leg in the past and had some percutaneous interventions and some toe amputation several years ago, that is all healed. I have do ne an angioplasty on his right leg about a year, maybe a year and a half ago for some ulcers on the fifth toe which had healed and he had done well after that. He also has glaucoma, cataracts, sort of a sleeping disorder, he takes Adderall to keep him awake. He has sleep apnea. PAST SURGICAL HISTORY: Again, is significant for bilateral lower extremity angioplasties and some t oe amputations on the left, which were all well healed. He has had a laparoscopic cholecystectomy i n the past. MEDICATIONS: Consist of 1. Insulin. 2. Norvasc. 3. Dyazide. 4. Lasix. 5. Atorvastatin. 6. Keppra. 7. Lisinopril. 8. Metoprolol. 9. Terazosin. 10. Eliquis. 11. He has been getting here in the hospital also vancomycin. 12. Ceftriaxone. SOCIAL HISTORY: He is a nonsmoker. He does not drink or use any illicit drugs. His is very i nvolved with his care. She lives with him and the daughter. There is a fairly strong family histor y of diabetes in his family. REVIEW OF SYSTEMS: He currently feels well. He has a good appetite. He has no nausea, no vomiting, no diarrhea, no fever, no chills, no recent weight gain or weight loss. No abdominal or back pain. He has no pain in his feet. He is totally neuropathic, however. He has had diabetes for many year s. He had a CVA. He has got residual seizure disorder, but his speech is a little off but he ambula judy fine and he has got normal motor and sensory function in his extremities. FAMILY HISTORY: Again, is significant for diabetes in multiple family members. PHYSICAL EXAMINATION GENERAL: He is a middle-aged gentleman. He is a good historian. He is in no distress. VITAL SIGNS: He has been afebrile. His blood pressure is 135/61, heart rate 60, respiratory rate i s 18. He is 93% sat on room air. NECK: He has 2+ carotid pulses bilaterally. LUNGS: Clear. HEART: He has got 2+ radial and brachial pulses bilaterally. ABDOMEN: Soft, nontender, nondistended. EXTREMITIES: He has 2+ femoral and popliteal pulses bilaterally. Pedal pulses are not palpable, noble anderson, I did an angiogram just several weeks ago and his vessels are just very calcified and small a nd the only runoff into the foot is through the anterior tibial artery, which is patent down to just right into the foot and then the dorsalis pedis occluded and then reconstituted a cm or so distally . I was able to angioplasty right down into the foot. The foot itself is warm and pink. He has goo d brisk refill and all the toes are well perfused. The right first toe has dry eschar on both sides and at the tip. There is no drainage. There is no odor. It really dried up nicely with the use o f the Betadine and with the antibiotics. It looks like the cellulitis is really resolved. His left foot everything is well healed. He has no open wounds. He had an MRI of the right foot, and I do n ot have the results, but I was told that he had osteo on the right first toe. There is another MRI that was done just yesterday, this morning, the results pending. IMPRESSION: Right first toe likely osteomyelitis with some ulcerations from diabetic foot infection status post recent revascularization. There is good perfusion to the foot. I talked to he and his at length and I recommended just amputating the toe, but they wanted to try to save it and I th ink it is reasonable. I think these eschars are healable and maybe with some good wound care and lo ng-term antibiotics he might be able to heal this. But I told him there is a good chance that the o steomyelitis will not clear and that they understand that if it is not successful, then we would pro ceed with amputation of the toe in the future. If not I think he just needs a PICC line and set up w ith IV antibiotics, for the long-term he does not want to proceed with amputation at this time and i t looks like the cellulitis has resolved. There is no active infection going on, just got some dry eschars and underlying osteomyelitis. Dictated By: ANA INIGUEZ/DANILO Conf#: [id number] DID#: [id number] CC: IGOR HERNANDEZ HYDROELECTRIC STATION OPERATOR CHIEF; Javid ORTIZ MD; DORIS SLAUGHTER DPM; SHALONDA ESPINOSA MD; DORIS LAYNE MD;*EndCC*
[2016-06-26 20:00] VITALS: BP 166/68; RESP 18
--- NOTE | 2016-06-26 20:34 | PN ---
DATE: 06/26/2016 TIME: Approximately 8:00 a.m. SUBJECTIVE: and the patient are present. The patient is not complaining of anything specifica lly. Had a relatively decent night; however, did get himself a little upset because of new doctors in terms of his infectious disease and other doctors. PHYSICAL EXAMINATION: VITAL SIGNS: This morning, vital signs revealed the following: The patient's blood pressure is 135 /61, pulse of 60, respirations 18, temperature 98.5, O2 sat 93%. HEENT: Unremarkable. LUNGS: Clear. HEART: Reveals regular rhythm. EXTREMITIES: Right great toe is bandaged. IMPRESSION: 1. Diabetes mellitus type 1 with retinopathy, vascular disease, and currently gangrenous right grea t toe. 2. Post-stroke. 3. Hypertension. 4. Hyperlipidemia. 5. Peripheral vascular disease. DISCUSSION: Vital signs are stable this morning. In terms of his blood work done this morning, a C BC revealed some anemia with hemoglobin of 9.4, hematocrit of 27.5, normal white count. Chemistries show normal electrolytes, BUN, creatinine. AM glucose was 169. The rest of laboratory, other than low albumin, basically unremarkable. PLAN: To continue present treatment. May need to increase his insulin, which was decreased over . CONDITION: At least at the time of my visit, stable. Dictated By: SHALONDA TYSON/DANILO Conf#: [id number] DID#: [id number]
[2016-06-26] MEDS: TERAZOSIN 5 MG CAP PO SCH (20:41)
[2016-06-26] MEDS: ATORVASTATIN 10 MG TAB PO SCH (20:41)
[2016-06-26] MEDS: INSULIN GLARGINE [LANtus] 3 ML PEN SC SCH (20:47)
[2016-06-27] MEDS: SOD CHLORIDE 0.45% 1,000 ML IV SCH ×2 (02:30→21:59)
[2016-06-27] MEDS: VANCOMYCIN 1.25 GM in SOD CHLORIDE 0.9% 250 ML IVPB SCH ×2 (06:20→17:45)
[2016-06-27] MEDS: LEVOFLOXACIN 500 MG TAB PO SCH (06:20)
[2016-06-27] MEDS: TRIAMTERENE/HCTZ (37.5-25) CAP PO SCH (06:22)
[2016-06-27 07:06] VITALS: BP 141/64; RESP 18
[2016-06-27] MEDS: INSULIN ASPART [NOVOLOG] 3 ML PEN SC SCH ×7 (07:54→21:00)
[2016-06-27] MEDS: DOCUSATE SODIUM 100 MG CAP PO SCH ×2 (08:45→21:57)
[2016-06-27] MEDS: LEVETIRACETAM 500 MG TAB PO SCH ×2 (08:45→21:57)
[2016-06-27] MEDS: METOPROLOL 25 MG TAB PO SCH ×2 (08:46→21:58)
[2016-06-27] MEDS: FUROSEMIDE 20 MG TAB PO SCH (08:46)
[2016-06-27] MEDS: LISINOPRIL 20 MG TAB PO SCH ×2 (08:46→21:58)
[2016-06-27] MEDS: AMLODIPINE 5 MG TAB PO SCH (08:47)
[2016-06-27] MEDS: APIXABAN 5 MG TABLET PO SCH ×2 (08:47→21:57)
--- NOTE | 2016-06-27 13:11 | PN ---
DATE: 06/27/2016 TIME: Approximately 7:45 a.m. SUBJECTIVE: Patient is comfortable in bed, is present and the patient's blood sugar this morni ng was controlled, as was the rest of his vital signs, which revealed the following: PHYSICAL EXAMINATION: VITAL SIGNS: Blood pressure 141/54, pulse of 84, temperature 99, respiratory rate 18, O2 saturation 96% on room air. HEENT: Unremarkable. LUNGS: Clear. HEART: Reveals regular rhythm. ABDOMEN: Unremarkable. IMPRESSION: 1. Gangrenous right great toe with osteomyelitis. 2. Diabetes mellitus type 1, under relatively good control. 3. Hypertension. 4. Hyperlipidemia. PLAN: At this point, is to continue the patient on his current regimen. We will discuss with ID in terms of putting a PICC line so he can eventually receive home intravenous antibiotic use. CONDITION: Stable. Dictated By: SHALONDA TYSON/DANILO Conf#: [id number] DID#: [id number]
--- NOTE | 2016-06-27 14:14 | PN ---
DATE: 06/27/2016 SUBJECTIVE: No changes overnight. No fevers. The patient looks comfortable. He is on IV vancomycin and oral Levaquin. MICROBIOLOGY: Wound culture grew Stenotrophomonas maltophilia. Anaerobic culture negative. PHYSICAL EXAMINATION: GENERAL: This is a well-developed, middle-aged white man who is in no distress. HEENT: Head atraumatic, normocephalic. Sclerae anicteric. Buccal mucosa pink. NECK: Supple. CHEST: Rise symmetrical. Breath sounds clear. HEART: S1, S2. ABDOMEN: Soft, bowel sounds present. EXTREMITIES: Without cyanosis. ASSESSMENT: 1. Right great toe osteomyelitis with wound culture grew Stenotrophomonas maltophilia susceptible to Levaquin. 2. Peripheral vascular disease. 3. Diabetes with diabetic neuropathy. PLAN: The patient remains stable. We are going to discontinue vancomycin. As per Dr. Virk' note, the patient refused toe amputation and preferred to complete treatment for osteomyelitis. Since he is growing Stenotrophomonas that is susceptible to Levaquin, we can discharge him home on oral Levaquin instead of IV antibiotics as it has a good penetration to the bone. Will discuss with Dr. Lewis final plan for abx. Dictated By: IGOR HERNANDEZ MOTION STUDY ANALYST for ROMINA LAINEZ/NTS Conf#: [id number] DID#: [id number] MTDD
[2016-06-27 19:57] VITALS: BP 156/67; RESP 16
[2016-06-27] MEDS: ATORVASTATIN 10 MG TAB PO SCH (21:57)
[2016-06-27] MEDS: TERAZOSIN 5 MG CAP PO SCH (21:58)
[2016-06-27] MEDS: INSULIN GLARGINE [LANtus] 3 ML PEN SC SCH (22:08)
[2016-06-28] MEDS: LEVOFLOXACIN 500 MG TAB PO SCH (05:52)
[2016-06-28] MEDS: TRIAMTERENE/HCTZ (37.5-25) CAP PO SCH (05:52)
[2016-06-28] MEDS: VANCOMYCIN 1.25 GM in SOD CHLORIDE 0.9% 250 ML IVPB SCH (05:52)
[2016-06-28 06:24] LABS: ADD SCAN DIFF NO
[2016-06-28 06:28] LABS: BASOPHILS % 0.4 % (0.0-2.0); EOSINOPHILS # 0.2 10^3/ul (0.0-0.5); EOSINOPHILS % 3.3 % (0.0-7.0); HEMATOCRIT 28.4 % (42.0-52.0); HEMOGLOBIN 9.4 g/dl (14.0-18.0); LYMPHOCYTES # 0.6 10^3/ul (0.8-2.9); LYMPHOCYTES % 8.3 % (15.0-51.0); MEAN CORPUSCULAR HEMOGLOBIN 28.7 pg (29.0-33.0); MEAN CORPUSCULAR HGB CONC 33.1 g/dl (32.0-37.0); MEAN CORPUSCULAR VOLUME 86.9 fl (82.0-101.0); MEAN PLATELET VOLUME 10.8 fl (7.4-10.4); MONOCYTE # 0.7 10^3/ul (0.3-0.9); MONOCYTES % 9.8 % (0.0-11.0); NEUTROPHIL # 5.6 10^3/ul (1.6-7.5); NEUTROPHILS % 77.8 % (39.0-77.0); PLATELET COUNT 209 10^3/UL (140-415); RED BLOOD COUNT 3.27 10^6/ul (4.70-6.10); RED CELL DISTRIBUTION WIDTH 13.8 % (11.5-14.5); WHITE BLOOD COUNT 7.2 10^3/ul (4.8-10.8)
[2016-06-28 06:38] LABS: ALBUMIN 3.1 g/dl (3.3-4.9)
[2016-06-28 06:39] LABS: POTASSIUM 5.2 mmol/L (3.5-5.1)
[2016-06-28 06:41] LABS: BILIRUBIN,INDIRECT 0.3 mg/dl (0-1.1); BILIRUBIN,TOTAL 0.3 mg/dl (0.2-1.3); CREATININE 1.28 mg/dl (0.61-1.24); IRON 37 ug/dl (35-150)
[2016-06-28 06:42] LABS: ALBUMIN/GLOBULIN RATIO 1.03; CALCIUM 8.8 mg/dl (8.4-10.2); TOTAL PROTEIN 6.1 g/dl (6.1-8.1)
[2016-06-28 06:50] LABS: TOTAL IRON BINDING CAPACITY 206 ug/dl (241-421)
[2016-06-28 07:53] VITALS: BP 141/62; RESP 17
[2016-06-28] MEDS: INSULIN ASPART [NOVOLOG] 3 ML PEN SC SCH ×5 (07:53→17:15)
[2016-06-28] MEDS: APIXABAN 5 MG TABLET PO SCH (08:34)
[2016-06-28] MEDS: AMLODIPINE 5 MG TAB PO SCH (08:34)
[2016-06-28] MEDS: DOCUSATE SODIUM 100 MG CAP PO SCH (08:35)
[2016-06-28] MEDS: FUROSEMIDE 20 MG TAB PO SCH (08:35)
[2016-06-28] MEDS: METOPROLOL 25 MG TAB PO SCH (08:35)
[2016-06-28] MEDS: LISINOPRIL 20 MG TAB PO SCH (08:35)
[2016-06-28] MEDS: LEVETIRACETAM 500 MG TAB PO SCH (08:35)
--- NOTE | 2016-06-28 11:46 | PN ---
DATE: SUBJECTIVE: The patient is comfortable this morning in bed, no major complaints, eating his breakfa st. OBJECTIVE: VITAL SIGNS: Revealed the following: The patient's blood pressure was 141/62, pulse 64, respiratio ns 17, temperature 98, O2 96% on room air. HEENT: Unremarkable. LUNGS: Clear. HEART: Reveals a regular rhythm. ABDOMEN: Unremarkable and right great toe is bandaged. IMPRESSION: 1. Gangrenous right great toe distal phalanx 2. Diabetes mellitus type 1. 3. Hypertension. 4. Hyperlipidemia. DISCUSSION: Laboratory data this morning shows the following: The patient's CBC: White count is n ormal, hemoglobin is 9.4, steady from what prior values there were. His chemistry panels at this po int reveal the elevated creatinine at 5.2, reveal a potassium of 5.2 and a creatinine of 1.28. His glucose in the morning draw was 218, last night it was 120. The patient's liver function tests are basically unremarkable. His iron level is low, his saturation is low as well, possibly secondary to prior blood loss. Termination will be made when the patient's current problem is resolved. PLAN: Await the decision by infectious disease as to whether or not he can be managed with oral age nts or whether or not IV antibiotics need to be continued. CONDITION: At this point, stable. Dictated By: SHALONDA TYSON/DANILO Conf#: [id number] DID#: [id number]
--- NOTE | 2016-06-28 12:30 | CONS ---
Date/Time of Note Date/Time of Note DATE: 06/28/16 TIME: 12:28 Assessment/Plan Assessment/Plan Chief Complaint/Hosp Course SUBJECTIVE: No changes overnight. No fevers. The patient is alert, looks comfortable. MICROBIOLOGY: Wound culture grew Stenotrophomonas maltophilia. Anaerobic culture negative. PHYSICAL EXAMINATION: GENERAL: This is a well-developed, middle-aged white man who is in no distress. HEENT: Head atraumatic, normocephalic. Sclerae anicteric. Buccal mucosa pink. NECK: Supple. CHEST: Rise symmetrical. Breath sounds clear. HEART: S1, S2. ABDOMEN: Soft, bowel sounds present. EXTREMITIES: Without cyanosis. ASSESSMENT: 1. Right great toe osteomyelitis with wound culture grew Stenotrophomonas maltophilia susceptible to Levaquin. 2. Peripheral vascular disease. 3. Diabetes with diabetic neuropathy. PLAN: The patient remains stable. As per JACKIE Lewis plan to dc home on PO Levaquin for 6 weeks, f/u with podiatry [facility] pt/family at bedside Problems: Consultation Date/Type/Reason Admit Date/Time Jun 23, 2016 at 14:15 Type of Consultation: ID Referring Provider: DORIS HANSON MD Exam/Review of Systems Vital Signs Vitals Vital Signs Date Time Temp Pulse Resp B/P Pulse Ox O2 Delivery O2 Flow Rate FiO2 06/28/16 07:53 98.2 64 17 141/62 96 06/24/16 20:00 Room Air Intake and Output 06/27/16 06/27/16 06/28/16 15:00 23:00 07:00 Intake Total 83 ml 1390 ml 1000 ml Output Total 1000 ml 1000 ml Balance 83 ml 390 ml 0 ml Results Result Diagram: 06/28/16 0611 06/28/16 0611 Results 24 hrs Laboratory Tests Test 06/27/16 16:53 06/27/16 21:55 06/28/16 06:11 06/28/16 07:43 Bedside Glucose 205 120 264 H White Blood Count 7.2 Red Blood Count 3.27 L Hemoglobin 9.4 L Hematocrit 28.4 L Mean Corpuscular Volume 86.9 Mean Corpuscular Hemoglobin 28.7 L Mean Corpuscular Hemoglobin Concent 33.1 Red Cell Distribution Width 13.8 Platelet Count 209 Mean Platelet Volume 10.8 H Neutrophils % 77.8 H Lymphocytes % 8.3 L Monocytes % 9.8 Eosinophils % 3.3 Basophils % 0.4 Nucleated Red Blood Cells % 0.0 Neutrophils # 5.6 Lymphocytes # 0.6 L Monocytes # 0.7 Eosinophils # 0.2 Basophils # 0.0 Nucleated Red Blood Cells # 0.0 Sodium Level 140 Potassium Level 5.2 H Chloride Level 103 Carbon Dioxide Level 28 Anion Gap 14 Blood Urea Nitrogen 23 H Creatinine 1.28 H Glucose Level 218 Calcium Level 8.8 Iron Level 37 Total Iron Binding Capacity 206 L Percent Iron Saturation 18 L Total Bilirubin 0.3 Direct Bilirubin 0.00 Indirect Bilirubin 0.3 Aspartate Amino Transf (AST/SGOT) 14 L Alanine Aminotransferase (ALT/SGPT) 17 Alkaline Phosphatase 77 Total Protein 6.1 Albumin 3.1 L Globulin 3.00 Albumin/Globulin Ratio 1.03 Test 06/28/16 11:48 Bedside Glucose 229 H Medications Medications Current Medications Insulin Glargine (Lantus) 25 unit DAILY@20 SC Last administered on 06/27/16 22 :08; Admin Dose 25 UNIT; Start 06/23/16 at 20:00 Atorvastatin Calcium (Lipitor) 10 mg HS PO Last administered on 06/27/16 21:57 ; Admin Dose 10 MG; Start 06/23/16 at 21:00 Furosemide (Lasix) 20 mg DAILY PO Last administered on 06/28/16 08:35; Admin Dose 20 MG; Start 06/24/16 at 09:00 Levetiracetam (Keppra) 1,000 mg BID PO Last administered on 06/28/16 08:35; Admin Dose 1,000 MG; Start 06/23/16 at 21:00 Lisinopril (Zestril) 20 mg BID PO Last administered on 06/28/16 08:35; Admin Dose 20 MG; Start 06/23/16 at 21:00 Metoprolol Tartrate (Lopressor) 25 mg BID PO Last administered on 06/28/16 08: 35; Admin Dose 25 MG; Start 06/23/16 at 21:00 Terazosin HCl (Hytrin) 5 mg HS PO Last administered on 06/27/16 21:58; Admin Dose 5 MG; Start 06/23/16 at 21:00 Miscellaneous Information 10 mg DAILY PO ; Start 06/24/16 at 09:00; Status UNV Apixaban (Eliquis) 5 mg BID PO Last administered on 06/28/16 08:34; Admin Dose 5 MG; Start 06/23/16 at 21:00 Miscellaneous Information 1 ea NOTE XX ; Start 06/23/16 at 17:30 Glucose (Glutose) 15 gm Q15M PRN PO DECREASED GLUCOSE; Start 06/23/16 at 17:30 Glucose (Glutose) 22.5 gm Q15M PRN PO DECREASED GLUCOSE; Start 06/23/16 at 17: 30 Dextrose (D50w Syringe) 25 ml Q15M PRN IV DECREASED GLUCOSE; Start 06/23/16 at 17:30 Dextrose (D50w Syringe) 50 ml Q15M PRN IV DECREASED GLUCOSE; Start 06/23/16 at 17:30 Glucagon (Glucagen) 1 mg Q15M PRN IM DECREASED GLUCOSE; Start 06/23/16 at 17:30 Glucose 15 gm 15 gm Q15M PRN BUCCAL DECREASED GLUCOSE; Start 06/23/16 at 17:30 Sodium Chloride (1/2 NS) 1,000 ml @ 60 mls/hr [id number] IV Last administered on 06/27/16 21:59; Admin Dose 60 MLS/HR; Start 06/23/16 at 17:30 Miscellaneous Information (*Order Clarification Bulletin) MEDICATION REQUIRES CLARIFICATI... Q8H XX ; Start 06/23/16 at 17:30 Docusate Sodium (Colace) 100 mg BID PO Last administered on 06/28/16 08:35; Admin Dose 100 MG; Start 06/23/16 at 21:30 Amlodipine Besylate (Norvasc) 5 mg DAILY PO Last administered on 06/28/16 08: 34; Admin Dose 5 MG; Start 06/24/16 at 11:30 Triamterene/HCTZ (Dyazide) 1 cap DAILY@06 PO Last administered on 06/28/16 05: 52; Admin Dose 1 CAP; Start 06/24/16 at 11:30 Levofloxacin (Levaquin) 500 mg DAILY@06 PO Last administered on 06/28/16 05:52 ; Admin Dose 500 MG; Start 06/27/16 at 06:00 IGOR HERNANDEZ NP Jun 28, 2016 12:30
[2016-06-28] MEDS: SOD CHLORIDE 0.45% 1,000 ML IV SCH (14:10)
--- NOTE | 2016-06-28 15:45 | PDOCDIS ---
Discharge Instructions CONDITION Patient Condition: Fair HOME CARE INSTRUCTIONS: Diet Instructions: Reduced SodiumSpecial Diet: carb controlled diet ACTIVITY: Activity Restrictions: Partial Weight Bearing FOLLOW UP/APPOINTMENTS Appointments one week REFERRALS Other Referrals anjel rosas and dr bowling OTHER ORDERS: Other Orders: not working SHALONDA NEVES MD Jun 28, 2016 15:45
--- NOTE | 2016-06-28 17:45 | DS ---
DATE OF ADMISSION: 06/23/2016 DATE OF DISCHARGE: 06/28/2016 ADMITTING DIAGNOSES: 1. Gangrenous foot ulcer right great toe distal phalanx with erythema and gangrene. 2. Diabetes mellitus type 1 with retinopathy, status post stroke and peripheral vascular disease. 3. Seizure disorder. 4. Hypertension. 5. Hyperlipidemia. 6. Degenerative joint disease. 7. Prostatic enlargement. FINAL DIAGNOSES: 1. Gangrenous foot ulcer right great toe, improving and stable. 2. Diabetes mellitus type 1 with retinopathy, status post stroke and peripheral vascular disease. 3. Seizure disorder. 4. Hypertension. 5. Hyperlipidemia. 6. Degenerative joint disease. 7. Prostatic enlargement. This was one of several [facility] admissions for this 60-year-old gentleman who w as admitted with chief complaint of a swollen gangrenous right great toe. The patient had been seen [facility]. MRI was ordered that showed osteomyelitis and the patient was admitted for intravenous antibiotic usage as well as further treatment. Pertinent findings at the time of admission revealed the following: VITAL SIGNS: Blood pressure was 139/64, pulse was 63 and regular, respirations 18, temperature 98.1 , O2 saturation 95% on room air. HEENT: Unremarkable. LUNGS: Clear. HEART: Revealed a regular rhythm. ABDOMEN: Abdominal exam is unremarkable. EXTREMITIES: Pertinent finding was the right lower extremity where there was a diminished dorsalis pedis and anterior tibial pulse and a gangrenous distal right great toe with some erythema around it . IMPRESSION: As above. COURSE IN HOSPITAL: The patient was treated with antibiotics including Levaquin and vancomycin for this. At that time, infectious disease consultation and podiatry consultation and vascular surgery consultations were obtained. Infectious disease and podiatry concurred that the patient could be we ll controlled with Levaquin and subsequently on the day of discharge was his last dose of vancomycin , and the patient was discharged on all his preoperative medications which included: 1. Eliquis 5 mg b.i.d. 2. Lipitor 10 mg a day. 3. Lisinopril 20 mg b.i.d. 4. Metoprolol tartrate 25 mg b.i.d. 5. Terazosin 5 mg daily. 6. D-Amphetamine 10 mg caps ER one daily. 7. Keppra 1000 mg b.i.d. 8. Lasix 20 mg a day. A variety of other p.r.n. medications as well as 25 to 30 units of Lantus at bedtime, 10 units of Hu malog before breakfast, 14 before lunch and dinner as well as Melatonin at bedtime. The patient was discharged on the following plus his Levaquin which he had filled prior to his admission. He will be seen by Dr. Moore early next week and by myself in about a week and will be followed by Dr. Lucien de la cruz as well from a vascular standpoint. CONDITION ON DISCHARGE: Improved, still should be nonweightbearing if possible, keep his legs eleva alma. Prognosis at this point is fair, but guarded in view of his multiple issues in terms of being able to save that toe from the amputation. Again, final diagnosis as above. Dictated By: SHALONDA TYSON/DANILO Conf#: [id number] DID#: [id number]
[2016-06-28] MEDS ORDERED: INSULIN ASPART [NOVOLOG] 3 ML PEN SC SCH (18:00)
== END 2016-06-28 18:10 | disposition home or self-care (01) | DRG 300 ==
LOC: MS2 14:15
PROVIDERS: ADMIT Internal Medicine; ATTEND Internal Medicine
DX: E10.52 Type 1 diabetes mellitus with diabetic peripheral angiopathy with gangrene (principal); M86.8X7 Other osteomyelitis, ankle and foot; E10.40 Type 1 diabetes mellitus with diabetic neuropathy, unspecified; E10.621 Type 1 diabetes mellitus with foot ulcer; I48.2 Chronic atrial fibrillation; G40.909 Epilepsy, unspecified, not intractable, without status epilepticus; I10 Essential (primary) hypertension; L03.031 Cellulitis of right toe; N40.0 Benign prostatic hyperplasia without lower urinary tract symptoms; L97.519 Non-pressure chronic ulcer of other part of right foot with unspecified severity; E10.69 Type 1 diabetes mellitus with other specified complication; E10.319 Type 1 diabetes mellitus with unspecified diabetic retinopathy without macular edema; Z79.4 Long term (current) use of insulin; Z86.73 Personal history of transient ischemic attack (TIA), and cerebral infarction without residual deficits; Z79.02 Long term (current) use of antithrombotics/antiplatelets; G47.33 Obstructive sleep apnea (adult) (pediatric); B96.89 Other specified bacterial agents as the cause of diseases classified elsewhere
CPT/HCPCS: 73718; 80048; 80053; 80202; 82565; 82962; 83036; 83540; 84520; 84560; 85025; 87070; 87075; 87081; J0696; J0743; J1815; J3370; J7040; J7050

== ENCOUNTER 2017-11-13 07:20 | Day surgery (SDC) | END 2017-11-13 11:01 | disposition home or self-care (01) ==